=== PATIENT | female | born 1965 | race Caucasian/White ===

== ENCOUNTER 2017-10-30 13:54 | Observation (INO) | payer MEDICARE, MEDICAID ==
[2017-10-30] MEDS ORDERED: Nitroglycerin 2% Ointment 1 INCH/1 GM Packet ONE (14:52)
[2017-10-30 15:12] LABS: #Basophils 0.1 thou/uL (0.0-0.2); #Eosinphils 0.1 thou/uL (0.0-0.7); #Lymphocytes 1.6 thou/uL (1.20-3.40); #Monocytes 0.4 thou/uL (0.11-0.59); #Neutrophils 3.4 thou/uL (1.40-6.50); %Basophils 1.4 % (0.0-1.0); %Eosinophils 1.6 % (0.0-10.0); %Lymphocytes 28.5 % (21.0-51.0); %Monocytes 7.1 % (0.0-10.0); %Neutrophils 61.4 % (42.0-75.0); Hemoglobin 15.3 g/dL (12.0-16.0); Mean Corpuscular HGB CONC 36.5 g/dL (32.0-36.0); Mean Corpuscular Volume 90.5 fl (81.0-99.0); Mean Platelet Volume 7.2 fL (7.4-10.4); Platelet Count 192 thou/uL (130-400); RBC Distribution Width 12.4 % (11.5-14.5); Red Blood Cell (RBC) Count 4.62 mill/uL (4.20-5.40); White Blood Cell (WBC) Count 5.5 thou/uL (4.8-10.8)
--- NOTE | 2017-10-30 15:12 | RAD ---
PORTABLE CHEST: Date: 10/30/17 HISTORY: High blood pressure and chest pain. FINDINGS: Heart size appears borderline for portable technique. Mediastinal structures are unremarkable. Lungs are clear of infiltrates. No signs of failure. IMPRESSION: Borderline heart size. POS: [facility]
[2017-10-30 15:15] LABS: ALT (SGPT) 48 U/L (8-55); AST (SGOT) 47 U/L (5-34); Albumin 3.9 g/dL (3.5-5.0); Alkaline Phosphatase 73 U/L (40-150); Anion Gap 16 mmol/L (10-20); BUN (Urea Nitrogen) 7 mg/dL (9.8-20.1); Bilirubin, Total 0.5 mg/dL (0.2-1.2); CK (CPK) 29 U/L (29-168); CKMB 0.3 ng/mL (0-6.6); Calc. Creatinine Clearance 0 mL/min (70-130); Calcium 9.3 mg/dL (7.8-10.44); Carbon Dioxide 23 mmol/L (22-29); Chloride 106 mmol/L (98-107); Estimated GFR-MDRD 81; Globulin 3.3 g/dL (2.4-3.5); Glucose 101 mg/dL (70-105); Lipase 18 U/L (8-78); Potassium 4.5 mmol/L (3.5-5.1); Protein, Total 7.2 g/dL (6.0-8.3); Sodium 140 mmol/L (136-145); Troponin I Less than 0.010 ng/mL (< 0.028)
[2017-10-30 18:18] LABS: Troponin I 0.023 ng/mL (< 0.028)
[2017-10-30] MEDS ORDERED: Ondansetron HCl/PF 4 MG/2 ML Vial IVP PRN (19:10)
[2017-10-30] MEDS ORDERED: Amlodipine 5 MG TAB PO SCH (19:15)
[2017-10-30] MEDS ORDERED: Nitroglycerin 0.4 MG TAB (25 Tab Bottle) SL PRN (19:16)
[2017-10-30] MEDS: Acetaminophen 325 MG TAB PO PRN (20:00)
[2017-10-30] MEDS ORDERED: Nitroglycerin 2% Ointment 1 INCH/1 GM Packet TOP SCH (21:00)
[2017-10-30 21:27] LABS: Troponin I Less than 0.010 ng/mL (< 0.028)
[2017-10-31] MEDS: Acetaminophen 325 MG TAB PO PRN (02:13)
[2017-10-31 05:04] VITALS: BMI 41.2
[2017-10-31 06:07] LABS: Cardiac Risk 2.9 (Less than 4.5)
--- NOTE | 2017-10-31 07:40 | HP ---
DATE OF SERVICE: 10/30/2017 PRIMARY CARE PROVIDER: Dr. Orellana. CHIEF COMPLAINT: Headache. HISTORY OF PRESENT ILLNESS: This is a 51-year-old female with history of anxiety and depression, chronic pain, fibromyalgia, who presents to the emergency room with the complaint of headache, weakness, tiredness, as well as elevated blood pressures at home. The patient reports that she has been told that her blood pressure was high over the past year and about 3 weeks ago, was seen at a walk-in clinic for a rash and reports it was "really high." She started monitoring at home and notes that it has been 140-150 over 80s-90s. Today, she took her blood pressure after getting up that she was not feeling well and states it was 147/103. She waited, sat down and repeated it and noted that the diastolic blood pressure was 112. She does not remember what the systolic pressure was. She talked with a friend who is a nurse who recommended that she go to the emergency room. About 3 days ago, the patient had chest pain that was substernal, stabbing and tightness that was constant and lasted all day. She thought it was due to some Frito pie that she had and states that it was better with Tums. Two days ago, she had intermittent pain that lasted every 5-10 minutes and occurred every few hours. She noted that it was worse when she was up and doing chores and better at rest. She denies any radiation of this pain, denies any shortness of breath. The patient denies any nausea, vomiting, shortness of breath or abdominal pain. She has not had any prior evaluation of her heart, denies any precipitating or relieving factors other than rest. In the emergency room, she received nitro paste 1 inch and aspirin 324 mg and Hospitalist called for admission for concern of hypertensive emergency. Of note her arrival, blood pressure was 227/100. ALLERGIES: No known drug allergies. CURRENT MEDICATIONS: The patient does not know the dose and states she has not had her medicines in 3 weeks that she thought they might be contributing to elevated blood pressures. 1. Cymbalta. 2. BuSpar. 3. Abilify. 4. Trazodone. PAST MEDICAL HISTORY: 1. Fibromyalgia. 2. Endometriosis. 3. Polycystic ovaries. 4. Chronic back pain. 5. Depression. 6. Anxiety. PAST SURGICAL HISTORY: Laparoscopy x2. SOCIAL HISTORY: The patient is and lives with her , Jerry, who is her surrogate decision maker, phone number [phone]. She reports alcohol about 4 times per week, averaging a six pack each time, denies any problems if she goes without alcohol. She uses chew tobacco about one can every week or so. FAMILY HISTORY: Dad who of an enlarged heart and coronary artery disease at age 78 and mom who had melanoma and at 69. REVIEW OF SYSTEMS: Negative for fevers, chills, nausea, vomiting, shortness of breath, chest pain. Positive for some leg swelling bilateral, although not recently, that was treated with furosemide. She also had some soft bowel movements over the past few weeks. All remaining review of systems are reviewed and negative. PHYSICAL EXAMINATION: VITAL SIGNS: Blood pressure 189/105, temperature 98.8, pulse 69, respirations 16, saturations 96% on room air. GENERAL: Awake, alert, responsive, in no apparent distress, able to speak in full sentences. HEENT: Pupils are equal and round. Oral mucosa is pink and moist. NECK: Supple, nontender. LYMPHATICS: No palpable cervical or supraclavicular lymphadenopathy. LUNGS: Clear to auscultation bilateral. No audible wheezing, rhonchi or rales. HEART: Normal S1, S2, regular rate and rhythm, no audible murmurs. ABDOMEN: Soft. Present bowel sounds. Nontender, nondistended. VASCULAR: No audible carotid bruits, 2+ dorsalis pedis pulses. SKIN: No visible rashes. EXTREMITIES: The patient does have cool feet bilateral and cool hands, family reports that this is common for her. There are 2+ dorsalis pedis pulses. NEUROLOGIC: No focal deficits. PSYCHIATRIC: She appears euthymic, linear, logical, goal directed thought process and appears stated age. LABORATORY DATA: Reviewed. 1. CBC: 5.5, 15.3, 41.8, 192. 2. Chemistry: 140, 4.5, 106, 23, 7, 0.75, 101. 3. LFTs: Total bilirubin 0.5, AST 47, ALT 48, alkaline phosphatase 73, total protein 7.2, albumin 3.9. Troponin first one is less than 0.10, second one is 0.23. Chest x-ray is personally reviewed that shows borderline heart size. EKG personally reviewed, sinus rhythm, normal axis, normal intervals, poor R- wave progression, no ST changes. IMPRESSION: 1. Hypertensive emergency in the context of chest pain and headache. 2. Untreated and undiagnosed hypertension. 3. Weakness and fatigue, now resolved. 4. Anxiety, depression, fibromyalgia, chronic pain. 5. Tobacco abuse. 6. Regular alcohol use. 7. Mildly elevated liver function tests. PLAN: 1. Observation status in the hospital. 2. Gentle lowering of her blood pressure. We will start some amlodipine now with the goal of gently lowering her blood pressure, and avoiding any beta blockers due to the chest pain and anticipated cardiac evaluation tomorrow. Will discontinue the nitropaste to avoid any rapid lowering of her blood pressure, and use prn sublingual nitroglycerin if chest discomfort. Will also monitor headache and treat with tylenol as needed. 3. Cardiac evaluation, we will start with echocardiogram, anticipate the patient is going to need a stress test; however, given how significantly elevated her blood pressures was in the emergency room, I want to trend her blood pressures first. This can be reconsidered in the morning based on symptoms, echo report, and pattern of blood pressure. 4. The patient has not used her home medications for mood intentionally in 3 weeks, will not prescribe here. 5. Monitor on telemetry, check a lipid panel in the morning, and obtain a final troponin level. 6. Deep venous thrombosis prophylaxis not indicated. The patient is ambulatory. 7. Gastrointestinal prophylaxis not indicated. 8. Code status is FULL and surrogate decision maker is her . I reviewed the plan of care with the patient and her family present,discussing holding on stress test for now and instead starting with an echocardiogram. There were no questions at the end of evaluation. Pt is at high risk given age , comorbidities and current presentation. MTDD
[2017-10-31] MEDS: Aspirin 325 MG TAB PO SCH (08:22)
[2017-10-31] MEDS ORDERED: Amlodipine 5 MG TAB PO SCH ×3 (09:00→21:00)
--- NOTE | 2017-10-31 18:54 | PDOC.PN ---
- Subjective Encounter Start Date: 10/31/17 Encounter Start Time: 18:35 Subjective: f/u for HTN urgency and CP. BP improved but labile. - Objective Resuscitation Status: Resuscitation Status FULL:Full Resuscitation MAR Reviewed: Yes Vital Signs & Weight: Vital Signs (12 hours) Temp Pulse Resp BP BP Pulse Ox 10/31/17 17:45 185/82 H 10/31/17 16:33 69 10/31/17 16:19 69 10/31/17 15:48 97.6 F 69 20 188/97 H 96 10/31/17 12:47 98.2 F 64 12 141/63 H 97 10/31/17 07:40 97.5 F L 72 12 140/65 95 10/31/17 07:38 97.6 F 66 20 Weight Weight 240 lb 1.6 oz I&O: 10/30/17 10/31/17 11/01/17 06:59 06:59 06:59 Intake Total 490 750 Balance 490 750 Result Diagrams: 10/30/17 14:50 10/30/17 14:50 Additional Labs: Laboratory Tests 10/30/17 10/30/17 10/30/17 14:50 14:50 17:46 Troponin I Less than 0.010 0.023 Triglycerides Cholesterol LDL Cholesterol, Calc HDL Cholesterol Lipase 18 10/30/17 10/31/17 20:54 04:52 Troponin I Less than 0.010 Triglycerides 107 Cholesterol 171 LDL Cholesterol, Calc 91 HDL Cholesterol 59 Lipase Radiology Reviewed by me: Yes (2D echo - EF 50-55%, diast dysfxn) EKG Reviewed by me: Yes (Tele - SR) Phys Exam - Physical Examination Constitutional: NAD HEENT: PERRLA, sclera anicteric, oral pharynx no lesions Neck: no nodes, no JVD, supple, full ROM Respiratory: no wheezing, no rales, no rhonchi, clear to auscultation bilateral S1, S2 Cardiovascular: RRR, no significant murmur, no rub, gallop Gastrointestinal: soft, non-tender, no distention, positive bowel sounds Musculoskeletal: no edema, pulses present Neurological: non-focal, normal sensation, moves all 4 limbs Psychiatric: normal affect, A&O x 3 Skin: no rash, normal turgor, cap refill <2 seconds Dx/Plan (1) Hypertensive urgency Code(s): I16.0 - HYPERTENSIVE URGENCY Status: Acute Comment: Resolving, increase Amlodipine 10mg daily, titrate antihypertensives as clinically indicated (2) Weakness Code(s): R53.1 - WEAKNESS Status: Acute Comment: Etiology unclear, serial monitoring, likely due to untreated HTN (3) Tobacco abuse Code(s): Z72.0 - TOBACCO USE Status: Acute Comment: Smoking cessation resources (4) Anxiety Code(s): F41.9 - ANXIETY DISORDER, UNSPECIFIED Status: Acute Comment: Resume home regimen - Plan plan discussed w/ family, out of bed/ambulate, DVT proph w/SCDs Stable overall -: Await 2-Day Cardiolite stress test -: Increase Amlodipine 10mg daily -: Continue Telemetry monitoring -: Likely home in 24h * .
[2017-10-31] MEDS ORDERED: Amlodipine 10 MG TAB PO SCH (21:00)
[2017-11-01] MEDS: Aspirin 325 MG TAB PO SCH (10:15)
[2017-11-01 11:14] VITALS: BP 150/89; TEMP 97.6
--- NOTE | 2017-11-01 11:48 | NM ---
CARDIAC SPECT: HISTORY: A 51-year-old female with chest pain, hypertension, and a family history of coronary artery disease. TECHNIQUE: A myocardial perfusion scan was performed using the single isotope two day protocol with 32 millicuri es of technetium 99m sestamibi injected intravenously for rest and stress images. Pharmacologic stre ss exam was monitored and interpreted by Dr. Chawla. FINDINGS: Homogeneous tracer distribution is seen in the myocardial segments on stress and rest images without fixed or reversible defects. GATED SPECT LVEF: 62% WALL MOTION EXAM: Normal. IMPRESSION: Normal myocardial perfusion scan. POS: [facility]
[2017-11-01] MEDS ORDERED: ADENOSINE 60 MG/20 ML VIAL ONE (12:09)
--- NOTE | 2017-11-01 12:14 | STRESS ---
Acquisition Time: 2017-11-01 08:38:17 Total Exercise Time: 00:04:00 Test Indications: CHEST PAIN Medications: Protocol: ADENOSINE Max HR: 107 BPM 64% of Pred: 167 BPM Max BP: 124/070 mmHG Max Work Load: 1.0 METS THE PATIENT WAS INJECTED WITH ADENOSINE. SHE DID NOT DEVELOP CHEST PAIN. THERE WAS NO SIGNIFICANT ST DEPRESSION. AWAIT NUCLEAR IMAGES FOR DEFINITIVE DIAGNOSIS. Confirmed by KRISTY ANDRES ([id number]), brands editor VAUGHN MCNULTY ([id number]) on 11/01/2017 12:14:11 PM Referred By: DO Madonna ALCANTAR Confirmed By:KRISTY ANDRES
--- NOTE | 2017-11-01 13:29 | DIS ---
DATE OF ADMISSION: 10/30/2017 DATE OF DISCHARGE: 11/01/2017 DISCHARGE DIAGNOSES: 1. Hypertensive urgency, resolved. 2. Generalized weakness secondary to #1. 3. Tobacco abuse. 4. Anxiety disorder. CONSULTATIONS: None. PERTINENT LABORATORY AND X-RAY FINDINGS: Complete metabolic profile within normal limits. Total cho lesterol 171, triglycerides 107, HDL 59, LDL 91. Troponin I negative x3. Lipase 18. CBC within nor mal limits. Portable chest x-ray dated 10/30/2017 showed no acute cardiopulmonary process. Cardiolite stress joanne t dated 10/31/2017 showed no evidence of reversible or fixed ischemia with calculated ejection fracti on of 62%. A 2D transthoracic echocardiogram dated 10/31/2017 showed ejection fraction of 50-55%. D iastolic dysfunction. HOSPITAL COURSE: The patient was observed on the telemetry unit after initially presenting with head ache and hypertensive urgency. The patient underwent serial cardiac enzymes which were negative x3 p roceeding to Cardiolite stress testing showing no evidence of reversible or fixed ischemia with calcu lated ejection fraction of 62%. Telemetry monitoring showed sinus mechanism. The patient remained c linically stable during the hospital course. The patient was titrated on amlodipine to current dose of 10 mg daily, and will continue on an outpatient basis. The patient may benefit from additional ti tration of her antihypertensive regimen on an ongoing basis after discharge. I have examined the patient at the time of discharge and discussed pertinent laboratory and radiograp hic findings as well as instructions on followup. The patient verbalizes understanding and agreement and ready for discharge on 11/01/2017. DISCHARGE MEDICATIONS: Amlodipine 10 mg p.o. at bedtime. FOLLOWUP: The patient to follow up with her primary care provider, Dr. Orellana, within 7 days of discharge. CONDITION ON DISCHARGE: Stable. ACTIVITY: Ad ernesto. DIET: Heart healthy. CODE STATUS: Full. DISPOSITION: Home on 11/01/2017.
== END 2017-11-01 13:23 | disposition home or self-care (01) ==
LOC: SCSER 13:54 → 2SW 15:59
PROVIDERS: ADMIT Family Medicine; ATTEND Family Medicine
DX: I16.0 Hypertensive urgency (principal); F41.9 Anxiety disorder, unspecified; F32.9 Major depressive disorder, single episode, unspecified; G89.29 Other chronic pain; M54.9 Dorsalgia, unspecified; F17.220 Nicotine dependence, chewing tobacco, uncomplicated; M79.7 Fibromyalgia; Z79.899 Other long term (current) drug therapy
CPT/HCPCS: 71045; 78452; 80053; 80061; 82550; 82553; 83690; 84484 ×2; 85025; 93005; 93017; 93306; 94760 ×2; 99285; A9500; G0378; 36415